=== PATIENT | female | born 2005 | race Caucasian/White ===

== ENCOUNTER 2025-01-27 08:38 | Emergency (ER) | payer OTHER ==
[~2025-01-27] VITALS: Ht 170.2 cm; Wt 54.5 kg
[2025-01-27 08:43] VITALS: TEMP 98.8
[2025-01-27 09:04] LABS: APPEARANCE,URINE HAZY (CLEAR); GLUCOSE, URINE (UA) NEGATIVE (NEGATIVE); LEUKOCYTE ESTERASE ,URINE SMALL (NEGATIVE); NITRATE,URINE POSITIVE (NEGATIVE); OCCULT BLOOD,URINE NEGATIVE (NEGATIVE); SPECIFIC GRAVITIY, URINE 1.034 (1.003-1.030)
[2025-01-27 09:07] LABS: PLATELET COUNT (AUTO) 300 K/uL (150-450); RED BLOOD CELL COUNT(AUTO) 4.88 MIL/uL (4.00-5.20); RED CELL DISTRIBUTION WIDTH 14.6 % (11.5-14.5); WHITE BLOOD COUNT (AUTO) 9.3 K/uL (4.5-11.0)
[2025-01-27 09:16] LABS: CALCIUM, TOTAL 9.2 mg/dL (8.8-10.5); CREATININE 0.72 mg/dL (0.60-1.30); GLOMERULAR FILTR. RATE CALC > 60 mL/min (>60); GLUCOSE,RANDOM 89 mg/dL (70-110); SODIUM SERUM 136 mmol/L (136-145); UREA NITROGEN, BLOOD 8 mg/dL (7-18)
[2025-01-27 09:35] LABS: HCG,QUANTITATIVE 1 mIU/mL (0-6)
[2025-01-27 09:43] LABS: SQUAMOUS EPITHELIAL CELL,UR Many /LPF (None Seen); SULFOSALICYLIC ACID,URINE 2+ (Negative)
[2025-01-27] MEDS: ONDANSETRON HCL 4 MG/2 ML VIAL IVP ONE (10:56)
[2025-01-27 11:52] VITALS: BP 125/75; PULSE 66; RESP 18; O2SAT 99
[2025-01-27] MEDS ORDERED: CEPH-558 PO (14:20)
[2025-01-27] MEDS ORDERED: ONDA-104 PO (14:21)
== END 2025-01-27 14:36 | disposition home or self-care (01) ==
LOC: EMS 08:46
DX: R11.2 Nausea with vomiting, unspecified (principal); N39.0 Urinary tract infection, site not specified; F12.90 Cannabis use, unspecified, uncomplicated; N89.8 Other specified noninflammatory disorders of vagina; F17.290 Nicotine dependence, other tobacco product, uncomplicated
CPT/HCPCS: 99283; 96374; 80048; 81001; 83690; 84702; 84703; 85025; 87086; 36415; J2405; 81002